=== PATIENT | male | born 1950 | race Caucasian/White ===

== ENCOUNTER 2016-09-04 07:37 | Day surgery (SDC) | payer MEDICARE, OTHER ==
[~2016-09-04] VITALS: Ht 170.2 cm; Wt 71.8 kg
--- NOTE | ~2016-09-04 | OR ---
PATIENT'S NAME: TIFFANIE [facility] AGE: 66 Y [address] ROOM: [place] [address] LOCATION: GPCU ADMIT DATE: 09/04/2016 OR/Procedure Report DISCHARGE DATE: 09/05/2016 FAMILY PHYSICIAN: Jessica Collado MD ATTENDING PHYSICIAN: Alex Byrne SURGEON: Alex Byrne DO GLASS MOLD REPAIRER: DATE OF PROCEDURE: 09/04/2016 PREOPERATIVE DIAGNOSIS: Malignant right pleural effusion. POSTOPERATIVE DIAGNOSIS: Malignant right pleural effusion. PROCEDURE PERFORMED: Placement of right PleurX catheter. REFERRING: MARTIN Regalado BRIEF HISTORY: Mr. Body is a 66-year-old white male who has recently had a thoracentesis in [place] at [place] and this came back as a malignancy adenocarcinoma specifically. Within very short time, this effusion has recurred and we have been asked to place a PleurX drain. PROCEDURE DETAILS: He has been brought to the operative suite today, sterilely prepped and draped in the usual fashion. He is currently on Brilinta secondary coronary disease. The effusion was marked with ultrasound. This magdalene was then sterilely prepped and draped after appropriate IV sedation was achieved. A stab incision was created. We then accessed the pleural cavity and placed a sheath dilator assembly and placed a PleurX catheter under fluoroscopic guidance and then removed the sheath assembly. We did not tunnel this secondary to his Brilinta. The catheter secured to the chest with 2-0 silk and connected to suction. The patient was then transferred to the recovery room in stable condition. ALEX BYRNE DO MCB/modl /[id number] d: 09/09/16 1322 t: 09/10/16 0754, OPERATIVE SUMMARY
[~2016-09-04 07:37] MED LIST: ALTACE2.5 MG PO; AMARYL4 MG PO; ASPIRIN EC81 MG PO; COREG12.5 MG PO; GLUCOPHAGE1000 MG PO; JANUVIA 100 MG100 MG PO; NITROSTAT0.4 MG SL; NORCO 5-325 TA1 EACH PO; ZITHROMAX TRI-500 MG PO; ZOCOR40 MG PO
[2016-09-04 08:05] LABS: BLOOD URINE 10 /UL (NEGATIVE); COLOR URINE BROWN (YELLOW); GLUCOSE URINE NEGATIVE (NEGATIVE); KETONE URINE 150 mg/dL (NEGATIVE); LEUKOCYTES URINE 25 /UL (NEGATIVE); NITRITE URINE NEGATIVE (NEGATIVE); PROTEIN URINE 30 mg/dL (NEGATIVE); SPEC GRAVITY URINE 1.025 (1.003-1.035); TURBIDITY URINE CLEAR (CLEAR); UROBILINOGEN URINE 1 mg/dL (NORMAL)
[2016-09-04 08:17] LABS: BACTERIA URINE FEW (NEGATIVE); EPITHELIAL URINE NEGATIVE #/HPF (NEGATIVE); MUCUS URINE 2+ (NEGATIVE); RBC URINE 0-2 #/HPF (NEGATIVE); WBC URINE 0-2 #/HPF (NEGATIVE)
[2016-09-04 08:24] LABS: BASOPHIL # 0.1 K/uL (0.0-0.2); BASOPHIL % 0.5 %; EOSINOPHIL # 0.2 K/uL (0.0-0.5); HEMATOCRIT 43.7 % (37.0-53.0); HEMOGLOBIN 14.9 g/dL (11.0-16.0); IMMATURE GRANULOCYTE # 0.1 K/uL (0.0-0.3); IMMATURE GRANULOCYTE % 0.9 %; LYMPHOCYTE # 1.1 K/uL (0.8-4.0); LYMPHOCYTE % 11.5 %; MCH 31.5 pg (27.0-34.0); MCHC 34.1 gm/dL (32.0-36.5); MCV 92.4 fl (83.0-98.0); MONOCYTE # 1.1 K/uL (0.0-1.0); MONOCYTE % 11.4 %; MPV 9.8 fl (9.4-12.4); NEUTROPHIL # (ANC) 6.8 K/uL (1.4-9.0); NEUTROPHIL % 73.7 %; NRBC % 0 /100WBC (0-0.00); PLATELET COUNT 316 K/uL (150-450); RBC 4.73 M/uL (3.50-5.50); WBC 9.3 K/uL (4.0-11.0)
[2016-09-04 08:40] LABS: INR - (THERAPEUTIC) 0.99 (0.92-1.07); PROTIME 10.4 SECONDS (9.8-11.4)
[2016-09-04 08:46] LABS: ALBUMIN 2.6 gm/dL (3.5-5.0); ANION GAP 13.3 (10.0-19.0); CALCIUM 8.8 mg/dL (8.5-10.5); CREATININE 0.9 mg/dL (0.6-1.3); PHOSPHORUS 3.8 mg/dL (2.5-4.9); POTASSIUM 4.3 mMol/L (3.7-5.1)
[2016-09-05 03:59] LABS: BASOPHIL % 0.6 %; EOSINOPHIL # 0.3 K/uL (0.0-0.5); EOSINOPHIL % 4.4 %; HEMATOCRIT 36.6 % (37.0-53.0); HEMOGLOBIN 12.5 g/dL (11.0-16.0); IMMATURE GRANULOCYTE # 0.1 K/uL (0.0-0.3); IMMATURE GRANULOCYTE % 0.7 %; LYMPHOCYTE # 1.3 K/uL (0.8-4.0); LYMPHOCYTE % 18.6 %; MCH 31.9 pg (27.0-34.0); MCHC 34.2 gm/dL (32.0-36.5); MCV 93.4 fl (83.0-98.0); MONOCYTE # 0.9 K/uL (0.0-1.0); MONOCYTE % 12.9 %; MPV 9.6 fl (9.4-12.4); NEUTROPHIL # (ANC) 4.2 K/uL (1.4-9.0); NEUTROPHIL % 62.8 %; NRBC % 0 /100WBC (0-0.00); PLATELET COUNT 227 K/uL (150-450); RBC 3.92 M/uL (3.50-5.50); RDW-CV 12.1 % (11.9-14.6); WBC 6.8 K/uL (4.0-11.0)
[2016-09-05 04:19] LABS: ANION GAP 11.1 (10.0-19.0); CALCIUM 8.2 mg/dL (8.5-10.5); CREATININE 0.9 mg/dL (0.6-1.3); PHOSPHORUS 3.7 mg/dL (2.5-4.9); POTASSIUM 4.1 mMol/L (3.7-5.1)
[2016-09-05 11:35] LABS: ALBUMIN 2.1 gm/dL (3.5-5.0); ANION GAP 11.7 (10.0-19.0); CALCIUM 8.3 mg/dL (8.5-10.5); CREATININE 1.2 mg/dL (0.6-1.3); PHOSPHORUS 4.1 mg/dL (2.5-4.9); POTASSIUM 4.7 mMol/L (3.7-5.1)
[2016-09-05] MEDS ORDERED: PERCOCET 5-3251 EACH PO (12:49)
== END 2016-09-05 13:40 | disposition disaster alternative care site (69) ==
LOC: GPCU 07:37 → GSDC 07:37 → GPCU 11:54 → GSDC 09-05 13:40
PROVIDERS: Thoracic Surgery (Cardiothoracic Vascular Surgery)
PROC: 0W9930Z Drainage of Right Pleural Cavity with Drainage Device, Percutaneous Approach (ICD-10-PCS; principal; 2016-09-04)
DX: J91.0 Malignant pleural effusion (principal); I10 Essential (primary) hypertension; E78.00 Pure hypercholesterolemia, unspecified; I25.10 Atherosclerotic heart disease of native coronary artery without angina pectoris; I25.2 Old myocardial infarction; E11.9 Type 2 diabetes mellitus without complications; J44.9 Chronic obstructive pulmonary disease, unspecified; K21.9 Gastro-esophageal reflux disease without esophagitis; Z87.891 Personal history of nicotine dependence; Z79.82 Long term (current) use of aspirin; Z79.899 Other long term (current) drug therapy; Z79.2 Long term (current) use of antibiotics
CPT/HCPCS: C1729; J0690; J1644; J1885; J2001; J2270; J3010; J7030; J7050